=== PATIENT | male | born 1990 | race Caucasian/White ===

== ENCOUNTER 2019-01-22 02:42 | Emergency (ER) | payer SELFPAY ==
[~2019-01-22] VITALS: Ht 177.8 cm; Wt 68.2 kg
[2019-01-22] MEDS ORDERED: NO HOME MEDS (02:56)
--- NOTE | 2019-01-22 02:56 | NUR ---
breath smells of etoh
[2019-01-22] MEDS ORDERED: acetaminophen 325mg tablet PO ONE (03:00)
[2019-01-22 03:15] VITALS: BP 123/70
== END 2019-01-22 03:17 | disposition home or self-care (01) ==
LOC: ER 02:43
DX: M54.5 Low back pain (principal); Z88.0 Allergy status to penicillin; V49.88XA Car occupant (driver) (passenger) injured in other specified transport accidents, initial encounter; Y93.89 Activity, other specified; Y92.413 State road as the place of occurrence of the external cause; Y99.9 Unspecified external cause status
CPT/HCPCS: 99283